=== PATIENT | male | born 1950 | race Hispanic/Latino ===

== ENCOUNTER 2019-07-09 05:51 | Day surgery (SDC) | payer MEDICARE ==
[2019-07-09] MEDS ORDERED: ASPIRIN EC 325 MG TAB PO ONE (06:24)
[2019-07-09] MEDS ORDERED: SODIUM CHLORIDE 0.9% 500 ML 500 ML IV SCH (07:00)
[2019-07-09 07:04] LABS: Basophils % (Auto) 0.4 % (0.0-1.8); Eosinophils # (Auto) 0.3 K/mm3 (0.0-0.4); Eosinophils % (Auto) 2.5 % (0.0-4.3); Hematocrit 41.9 % (35.5-45.6); Hemoglobin 14.5 gm/dl (11.8-15.2); Lymphocytes # (Auto) 3.9 K/mm3 (1.2-5.4); Lymphocytes % (Auto) 32.5 % (13.4-35.0); Mean Corpuscular HGB Conc 35 % (32-34); Mean Corpuscular Volume 86 fl (84-94); Monocytes # (Auto) 0.9 K/mm3 (0.0-0.8); Monocytes % (Auto) 7.5 % (0.0-7.3); Platelet Count 246 K/mm3 (140-440); Red Blood Count 4.91 M/mm3 (3.65-5.03); Red Cell Distribution Width 13.6 % (13.2-15.2)
[2019-07-09 07:18] LABS: BUN/Creatinine Ratio 20; Blood Urea Nitrogen 18 mg/dL (9-20); Calcium 9.6 mg/dL (8.4-10.2); Hemolysis Index 15
[2019-07-09 07:21] LABS: INR 0.9 (0.87-1.13)
[2019-07-09] MEDS ORDERED: MIDAZOLAM 2 MG/2 ML INJ ONE (09:37)
[2019-07-09] MEDS ORDERED: fentaNYL 100 MCG/2 ML INJ ONE (09:37)
[2019-07-09] MEDS ORDERED: HEPARIN/NS 5000 UNIT/500ML 1,000 ML IR ONE (09:38)
[2019-07-09] MEDS ORDERED: VERAPAMIL 5 MG/2 ML INJ ONE (09:38)
[2019-07-09] MEDS ORDERED: HEPARIN 10,000 UNITS/10 ML VIAL ONE (09:38)
[2019-07-09] MEDS ORDERED: NITROGLYCERIN SYRINGE 3 ML ONE (09:39)
[2019-07-09] MEDS ORDERED: LIDOCAINE (2%) 20 MG/1 ML VIAL 20 ML MDV INFILTRATI ONE (09:39)
--- NOTE | 2019-07-09 10:44 | Cardiac Catherization Report ---
REFERRING PHYSICIAN: Dr. Eze Martinez. PRIMARY CARE PHYSICIAN: Dr. Roe Will. INDICATION FOR PROCEDURE: The patient is an extremely pleasant 68-year-old male with multiple risk factors including diabetes and hypothyroidism, who presents here for cardiac catheterization due to abnormal stress test and symptoms. Risks, benefits, alternatives discussed at length prior to obtaining informed consent. PROCEDURE IN DETAIL: The patient was brought to catheterization lab in a postabsorptive state, prepped and draped in sterile fashion. Jackson's test in right hand was normal. A 2 mL of 2% lidocaine used to anesthetize the right wrist. A standard 6-German hydrophilic sheath used to cannulate the right radial artery via modified Seldinger technique. All exchanges performed to exchange a J-tip guidewire. JL3.5 of catheter engaged the left main. No dampening or ventricularization. Cineangiography performed in all projections. JR4 catheter used to cross the aortic valve under fluoroscopic guidance. Left ventriculography performed in 30 HO and 30 TURKMEN projections via hand injections, catheter flushed. Manual pullback performed with continuous pressure monitoring. Catheter used to engage the right coronary. No dampening or ventricularization. Cineangiography performed in all projections. Next, due to recurrent chest, borderline hypertension, a root aortography was performed in the TURKMEN projection with power injector. Next, catheter removed from the body of wire, sheath removed. Manual pressure used to achieve hemostasis. I directly supervised the administration of moderate sedation from 10:02 a.m. to 10:30 a.m. with fentanyl and Versed. INTERPRETATION: Aortic pressure is 140/70, LV pressure is 140. LVEDP of 15 mmHg. Left ventriculography reveals normal systolic performance with estimated ejection fraction of 55-60%. No evidence of aortic stenosis. CORONARY ANATOMY: This is a right dominant system. Left main is very short and trifurcates into left anterior descending, ramus intermedius, and left circumflex, no significant disease in the short left main, left circumflex is moderate sized vessel, courses AV groove, diminutive to AV groove circ, large OM trunk. No significant disease. LAD is a moderate sized vessel, courses anterior intergroove, wraps around the apex, no significant disease. Ramus intermedius is a small vessel, courses the medial aspect to lateral wall. No significant disease. Right coronary is a moderate sized vessel, courses the AV groove. No significant disease, scattered luminal irregularities are noted. ANDRE 3 flow throughout. Root aortography reveals normal contour, normal great vessel anatomy, no evidence of dissection, penetrating aortic ulcer, or aortic insufficiency. CONCLUSIONS: 1. No angiographic evidence of significant epicardial coronary disease in this right dominant system. 2. Normal left ventricular systolic performance, estimated ejection fraction of 55-60%. 3. No evidence of aortic stenosis. 4. Normal LVEDP. 5. Normal root aortography without evidence of dissection, penetrating aortic ulcer, or aortic insufficiency. Standard radial care. Results of procedure explained to the patient and family. All questions and concerns were addressed. The patient tolerated the procedure well. Follow up with me in the office. Stable cardiac status. [facility]# [id number] HUSSEIN/ALVIN
--- NOTE | 2019-07-09 11:19 | Short Stay Summary ---
Short Stay Documentation Date of service: 07/09/19 - History H&P: obtained from office - Allergies and Medications Current Medications: Allergies No Known Allergies Allergy (Unverified 07/09/19 05:51) Home Medications Medication Instructions Recorded Confirmed Last Taken Type Aspirin [Adult Aspirin] 81 mg PO DAILY 07/09/19 07/09/19 07/08/19 History Levothyroxine [Synthroid] 50 mcg PO QAM 07/09/19 07/09/19 07/08/19 History metFORMIN XR [Glucophage XR] 500 mg PO BID 07/09/19 07/09/19 07/08/19 History Active Medications Sodium Chloride (Nacl 0.9% 500 Ml) 500 mls @ 50 mls/hr IV DIRECT SHAYY Stop: 07/09/19 16:59 Last Admin: 07/09/19 06:57 Dose: 50 mls/hr Documented by: - Brief post op/procedure progress note Date of procedure: 07/09/19 Pre-op diagnosis: abnormal stress test Post-op diagnosis: other (normal coronaries) Procedure: C - see dictated cath report Anesthesia: local Estimated blood loss: none Condition: stable - Disposition Condition at discharge: Good Disposition: [id number] TO HOME OR SELFCARE - Discharge Diagnoses (1) Normal coronary arteries Status: Chronic (2) Diabetes Status: Chronic (3) Hypothyroidism Status: Chronic Short Stay Discharge Plan Activity: advance as tolerated Wound: open to air, keep clean and dry, per your surgeon's advice Follow up with: PRIMARY CARE, [Primary Care Provider] - 7 Days
[2019-07-09 13:08] VITALS: BP 123/48
== END 2019-07-09 13:30 | disposition home or self-care (01) ==
LOC: CATHLABREC 05:51
PROVIDERS: ATTEND Internal Medicine
DX: R94.39 Abnormal result of other cardiovascular function study (principal); E11.9 Type 2 diabetes mellitus without complications; E03.9 Hypothyroidism, unspecified; G47.30 Sleep apnea, unspecified; F17.210 Nicotine dependence, cigarettes, uncomplicated; Z79.82 Long term (current) use of aspirin; Z79.899 Other long term (current) drug therapy; Z79.84 Long term (current) use of oral hypoglycemic drugs; Z90.49 Acquired absence of other specified parts of digestive tract; Z98.890 Other specified postprocedural states; Z79.01 Long term (current) use of anticoagulants
CPT/HCPCS: 36415; 80048; 85025; 85610; 85730; 93005; 93010; 93458; 93567; 99156; 99157; C1894; J1644; J2250; J3010; J7040; Q9967